=== PATIENT | male | born 1995 | race Caucasian/White ===

== ENCOUNTER 2022-03-04 16:13 | Emergency (ER) | payer SELFPAY ==
[~2022-03-04] VITALS: Ht 170.2 cm; Wt 90.7 kg
[2022-03-04 16:24] VITALS: BP 139/91
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
[2022-03-04] MEDS ORDERED: LIDOCAINE MPF 1% 10 MG/ML VIAL INJ ONE (17:00)
--- NOTE | 2022-03-04 17:11 | NUR ---
PT MOVED TO ER BED 9
[2022-03-04] MEDS ORDERED: BACITRACIN OINT 500 UNITS/GM PKT TP ONE (17:20)
[2022-03-04 17:48] VITALS: BP 125/76
--- NOTE | 2022-03-04 17:48 | NUR ---
PATIENT BIB [employer]. PATIENT EXAMINED BY DR. REDDY. PATIENT MEDICALLY CLEARED AND RELEASED IN CUSTODY IN STABLE CONDITION. ORIGINAL PRE-BOOK FORM GIVEN TO OFFICER KWAKU.
== END 2022-03-04 17:48 ==
LOC: MED 16:13
DX: E11.9 Type 2 diabetes mellitus without complications (principal); Z02.89 Encounter for other administrative examinations; Y35.833A Legal intervention involving a conducted energy device, suspect injured, initial encounter; Y93.89 Activity, other specified; Y92.89 Other specified places as the place of occurrence of the external cause; Y99.8 Other external cause status
CPT/HCPCS: 93005; 99283; J2001